=== PATIENT | male | born 1975 | race Caucasian/White ===

== ENCOUNTER 2017-10-10 14:49 | Emergency (ER) | payer OTHER ==
[~2017-10-10] VITALS: Ht 157.5 cm; Wt 108.2 kg
[~2017-10-10 14:49] MED LIST: GUAI-47 PO; OSLT75C PO
[2017-10-10 14:57] VITALS: Ht 157.5 cm; Wt 108.2 kg
[2017-10-10] MEDS ORDERED: IBUPROFEN 600 MG TAB PO ONE (17:00)
[2017-10-10 17:17] LABS: BASOPHIL # 0.1 10^3/ul (0.0-0.1); BASOPHILS % 0.5 % (0.0-2.0); EOSINOPHILS # 0.4 10^3/ul (0.0-0.5); EOSINOPHILS % 3.4 % (0.0-7.0); HEMATOCRIT 48.3 % (42.0-52.0); HEMOGLOBIN 16.6 g/dl (14.0-18.0); LYMPHOCYTES # 3.9 10^3/ul (0.8-2.9); LYMPHOCYTES % 36.7 % (15.0-51.0); MEAN CORPUSCULAR HEMOGLOBIN 31.4 pg (29.0-33.0); MEAN CORPUSCULAR HGB CONC 34.4 g/dl (32.0-37.0); MEAN CORPUSCULAR VOLUME 91.3 fl (82.0-101.0); MEAN PLATELET VOLUME 9.6 fl (7.4-10.4); MONOCYTE # 0.9 10^3/ul (0.3-0.9); NEUTROPHIL # 5.4 10^3/ul (1.6-7.5); NEUTROPHILS % 51.2 % (39.0-77.0); PLATELET COUNT 247 10^3/UL (140-415); RED BLOOD COUNT 5.29 10^6/ul (4.70-6.10); RED CELL DISTRIBUTION WIDTH 12.5 % (11.5-14.5); WHITE BLOOD COUNT 10.6 10^3/ul (4.8-10.8)
[2017-10-10 17:34] LABS: ADD UMIC NO; UR ASCORBIC ACID NEGATIVE (NEGATIVE); UR BILIRUBIN (Dip) NEGATIVE (NEGATIVE); UR BLOOD (Dip) NEGATIVE (NEGATIVE); UR CLARITY CLEAR (CLEAR); UR COLOR YELLOW (YELLOW); UR GLUCOSE (Dip) NEGATIVE (NEGATIVE); UR KETONES (Dip) NEGATIVE (NEGATIVE); UR LEUKOCYTE ESTERASE (Dip) NEGATIVE Leu/ul (NEGATIVE); UR NITRITE (Dip) NEGATIVE (NEGATIVE); UR SPECIFIC GRAVITY (Dip) 1.028 (1.003-1.030); UR TOTAL PROTEIN (Dip) NEGATIVE (NEGATIVE); UR UROBILINOGEN (Dip) 1+ mg/dL (NEGATIVE)
[2017-10-10 17:48] LABS: ALBUMIN 4.6 g/dl (3.3-4.9); ALBUMIN/GLOBULIN RATIO 1.58; BILIRUBIN,INDIRECT 0.1 mg/dl (0-1.1); BILIRUBIN,TOTAL 0.1 mg/dl (0.2-1.3); CALCIUM 9.5 mg/dl (8.4-10.2); CREATININE 0.92 mg/dl (0.61-1.24); POTASSIUM 4.3 mmol/L (3.5-5.1); TOTAL PROTEIN 7.5 g/dl (6.1-8.1)
--- NOTE | 2017-10-10 17:52 | RADRPT ---
PROCEDURE: CT abdomen and pelvis without contrast. CLINICAL INDICATION: Lower abdominal pain for 3 weeks. TECHNIQUE: CT of the abdomen and pelvis was performed without contrast. Coronal and sagittal reform atted images were obtained from the axial source images. Images were reviewed on a high-resolution [employer] workstation. The total exam CTDI equals 23.01 mGy and the total exam DLP equals 1488.48 mGy-cm. DICOM images are available. One or more of the following dose reduction techniques were used: - Automated exposure control. - Adjustment of the mA and/or kV according to patient size. - Use of iterative reconstruction technique. COMPARISON: None available. FINDINGS: Visualized lower thorax: The visualized lung bases are clear. The visualized heart is unremarkable. Hepatobiliary system and spleen: There is a 1.4 cm cyst in segment 7 of the liver, which is otherwi se grossly unremarkable. There is no intra or extrahepatic biliary ductal dilatation. The gallbladde r surgically absent. The spleen is grossly unremarkable. The pancreas is grossly unremarkable. Adrenal glands and genitourinary system: The adrenal glands are grossly unremarkable. There is no n ephrolithiasis or hydronephrosis. The urinary bladder is grossly unremarkable. The prostate gland an d seminal vesicles are grossly unremarkable. Gastrointestinal system: There is no bowel wall thickening or evidence of obstruction. The appendix is in the right lower quadrant and is unremarkable. Peritoneum, vascular, and lymphatics: There is no free intraperitoneal air or free fluid. There is no mesenteric or retroperitoneal adenopathy. The aorta is nonaneurysmal. There is a moderate fat con taining periumbilical hernia. Musculoskeletal system and soft tissues: There are bilateral pars defects at L5 without associated spondylolisthesis. There is mild multilevel degenerative enthesopathy. There are no concerning osseo us lesions. The soft tissues are unremarkable. IMPRESSION: 1. No acute abnormality or findings to suggest a source of the patient's symptoms. 2. Benign hepatic cysts. 3. Moderate fat containing periumbilical hernia. 4. Bilateral pars defects at L5 without associated spondylolisthesis. RPTAT: HLBP .Tommy Ly MD, Date Time Electronically viewed and signed by .Tommy Ly MD, MD on 10/10/2017 17:52 .P/
[2017-10-10] MEDS ORDERED: HYDR-906 PO (17:57)
--- NOTE | 2017-10-10 18:04 | ERD ---
ER Documentation Chief Complaint Chief Complaint Pt with B flank pain X 3 weeks. HPI 42-year-old male complaining of bilateral flank pain 3 weeks. Patient states the pain comes and goes and he has occasional dysuria. He denies hematuria. Has normal bowel movements. Has not taken medications for pain. Denies vomiting. Denies fever. Denies chest pain or shortness of breath. Medical history is umbilical hernia. Surgical history is cholecystectomy. Smokes 2 cigarettes a day. NKDA. ROS All systems reviewed and are negative except as per history of present illness. Medications Home Meds Active Scripts Hydrocodone/Acetaminophen ([place] 5-325 Tablet) 1 Each Tablet, 1 TAB PO Q6H Y for PAIN, #7 TAB Prov:VILMA AVILA PA-C 10/10/17 Guaifenesin-Dextromethorphan* (Mucinex* DM) 600-30 Mg Tabsr, 1 TAB PO Q12 for 7 Days, TAB Prov:DUNG YOUSSEF DO 01/09/16 Oseltamivir Phosphate* (Tamiflu*) 75 Mg Capsule, 75 MG PO BID for 5 Days, CAP Prov:DUNG YOUSSEF DO 01/09/16 Allergies Allergies: Coded Allergies: No Known Allergy (Unverified , 01/01/16) PMhx/Soc History of Surgery: Yes (gallbladder) Anesthesia Reaction: No Hx Neurological Disorder: No Hx Respiratory Disorders: Yes (ASTHMA A CHILD) Hx Cardiac Disorders: No Hx Psychiatric Problems: No Hx Miscellaneous Medical Probl: No Hx Alcohol Use: No Hx Substance Use: No Hx Tobacco Use: No Physical Exam Vitals Vital Signs Date Time Temp Pulse Resp B/P Pulse Ox O2 Delivery O2 Flow Rate FiO2 10/10/17 14:57 98.2 94 18 118/75 98 Physical Exam GENERAL: The patient is well-appearing, well-nourished, in no acute distress CHEST: Clear to auscultation bilaterally. There are no rales, wheezes or rhonchi. HEART: Regular rate and rhythm. No murmurs, clicks, rubs or gallops. No S3 or S4. ABDOMEN:Soft, nontender and nondistended. Good bowel sounds. No rebound or guarding. No gross peritonitis. No gross organomegaly or masses. Umbilical mass with no tenderness to palpation noted. BACK: No midline or flank tenderness. Result Diagram: 10/10/17 1706 10/10/17 1706 Results 24 hrs Laboratory Tests Test 10/10/17 17:00 10/10/17 17:06 Urine Color YELLOW Urine Clarity CLEAR Urine pH 6.0 Urine Specific [place] 1.028 Urine Ketones NEGATIVEmg/dL Urine Nitrite NEGATIVEmg/dL Urine Bilirubin NEGATIVEmg/dL Urine Urobilinogen 1+mg/dL Urine Leukocyte Esterase NEGATIVELeu/ul Urine Hemoglobin NEGATIVEmg/dL Urine Glucose NEGATIVEmg/dL Urine Total Protein NEGATIVEmg/dl White Blood Count 10.610^3/ul Red Blood Count 5.2910^6/ul Hemoglobin 16.6g/dl Hematocrit 48.3% Mean Corpuscular Volume 91.3fl Mean Corpuscular Hemoglobin 31.4pg Mean Corpuscular Hemoglobin Concent 34.4g/dl Red Cell Distribution Width 12.5% Platelet Count 85182^3/UL Mean Platelet Volume 9.6fl Neutrophils % 51.2% Lymphocytes % 36.7% Monocytes % 8.0% Eosinophils % 3.4% Basophils % 0.5% Nucleated Red Blood Cells % 0.0/100WBC Neutrophils # 5.410^3/ul Lymphocytes # 3.910^3/ul Monocytes # 0.910^3/ul Eosinophils # 0.410^3/ul Basophils # 0.110^3/ul Nucleated Red Blood Cells # 0.010^3/ul Sodium Level 142mmol/L Potassium Level 4.3mmol/L Chloride Level 104mmol/L Carbon Dioxide Level 25mmol/L Anion Gap 17 Blood Urea Nitrogen 22mg/dl Creatinine 0.92mg/dl Glucose Level 101mg/dl Calcium Level 9.5mg/dl Total Bilirubin 0.1mg/dl Direct Bilirubin 0.00mg/dl Indirect Bilirubin 0.1mg/dl Aspartate Amino Transf (AST/SGOT) 51IU/L Alanine Aminotransferase (ALT/SGPT) 128IU/L Alkaline Phosphatase 100IU/L Total Protein 7.5g/dl Albumin 4.6g/dl Globulin 2.90g/dl Albumin/Globulin Ratio 1.58 Lipase 215U/L Current Medications Medications (Trade) Dose Ordered Sig/Maile Route PRN Reason Start Time Stop Time Status Last Admin Dose Admin Ibuprofen (Motrin) 600 mg ONCE ONCE PO 10/10/17 17:00 10/10/17 17:01 DC 10/10/17 17:05 Procedures/[facility] DIAGNOSTIC IMAGING REPORT Patient: GERALD DENG : 1975 Age: 42 Sex: M MR #: [id number] DOS: 10/10/17 1656 Ordering MD: GIOVANNA AVILA PA-C Location: [facility] Room/Bed: PROCEDURE: CT abdomen and pelvis without contrast. CLINICAL INDICATION: Lower abdominal pain for 3 weeks. TECHNIQUE: CT of the abdomen and pelvis was performed without contrast. Coronal and sagittal reformatted images were obtained from the axial source images. Images were reviewed on a high-resolution P[employer] workstation. The total exam CTDI equals 23.01 mGy and the total exam DLP equals 1488.48 mGy-cm. DICOM images are available. One or more of the following dose reduction techniques were used: - Automated exposure control. - Adjustment of the mA and/or kV according to patient size. - Use of iterative reconstruction technique. COMPARISON: None available. FINDINGS: Visualized lower thorax: The visualized lung bases are clear. The visualized heart is unremarkable. Hepatobiliary system and spleen: There is a 1.4 cm cyst in segment 7 of the liver, which is otherwise grossly unremarkable. There is no intra or extrahepatic biliary ductal dilatation. The gallbladder surgically absent. The spleen is grossly unremarkable. The pancreas is grossly unremarkable. Adrenal glands and genitourinary system: The adrenal glands are grossly unremarkable. There is no nephrolithiasis or hydronephrosis. The urinary bladder is grossly unremarkable. The prostate gland and seminal vesicles are grossly unremarkable. Gastrointestinal system: There is no bowel wall thickening or evidence of obstruction. The appendix is in the right lower quadrant and is unremarkable. Peritoneum, vascular, and lymphatics: There is no free intraperitoneal air or free fluid. There is no mesenteric or retroperitoneal adenopathy. The aorta is nonaneurysmal. There is a moderate fat containing periumbilical hernia. Musculoskeletal system and soft tissues: There are bilateral pars defects at L5 without associated spondylolisthesis. There is mild multilevel degenerative enthesopathy. There are no concerning osseous lesions. The soft tissues are unremarkable. IMPRESSION: 1. No acute abnormality or findings to suggest a source of the patient's symptoms. 2. Benign hepatic cysts. 3. Moderate fat containing periumbilical hernia. 4. Bilateral pars defects at L5 without associated spondylolisthesis. MDM: 42-year-old male complaining of flank pain. Patient CT scan is within normal limits. I have low suspicion for nephrolithiasis, septic stone, bowel obstruction, strangulated hernia, appendicitis. Patient's blood work, vital signs, exam and imaging is within normal limits. Patient will be discharged with pain medication. Patient is told to follow-up with primary care within 1- 2 days for close evaluation and requested to return to the ER symptoms change or worsen. All questions answered at discharge. Departure Diagnosis: Primary Impression: Flank pain Condition: Stable Patient Instructions: Flank Pain, Uncertain Cause Referrals: SHANELL DASILVA (PCP) Additional Instructions: FOLLOW UP WITH YOUR PRIMARY CARE PHYSICIAN TOMORROW.Return to this facility if you are not improving as expected. VILMA AVILA PA-C Oct 10, 2017 18:04
== END 2017-10-10 18:08 | disposition home or self-care (01) ==
LOC: FTE 14:49
DX: R10.9 Unspecified abdominal pain (principal)
CPT/HCPCS: 36415; 74176; 80053; 81003; 83690; 85025; Z7502; Z7610

== ENCOUNTER 2018-05-11 14:28 | Emergency (ER) | END 2018-05-11 15:59 | disposition home or self-care (01) ==

== ENCOUNTER 2018-06-21 15:24 | Emergency (ER) | END 2018-06-21 17:23 | disposition home or self-care (01) ==

== ENCOUNTER 2019-06-09 14:41 | Emergency (ER) | payer MEDICAID ==
[~2019-06-09] VITALS: Ht 160 cm; Wt 111.2 kg
[~2019-06-09 14:41] MED LIST changes: +ALBU8.5H8 INH; +AZIT250T PO; +DOCU-144 PO; -GUAI-47 PO; +IBUP-1542 PO; +IBUP800T48 PO; +NAPR-688 PO; -OSLT75C PO
[2019-06-09 15:05] VITALS: BP 120/61; PULSE 77; RESP 16; Ht 160 cm; Wt 111.2 kg
[2019-06-09] MEDS ORDERED: IBUPROFEN 600 MG TAB PO ONE (17:00)
--- NOTE | 2019-06-09 17:12 | ERD ---
ER Documentation Chief Complaint Chief Complaint pt c/o sorethroat, BENNETT that radiates to back x 5 days HPI 44-year-old man complains of sore throat, congestion, cough, headache x5 days with tactile fevers. He states the headache is toward the back of his head but denies neck pain or neck stiffness. He has had no trouble speaking or swallowing, no vomiting or diarrhea, no complaints of chest pain or shortness of breath. ROS All systems reviewed and are negative except as per history of present illness. Medications Home Meds Active Scripts Albuterol Sulfate* (Proair HFA*) 8.5 Gm Hfa.aer.ad, 2 PUFF INH Q6H PRN for COUGH, #1 INHALER Prov:LEON REESE MD 06/09/19 Ibuprofen* (Motrin*) 600 Mg Tab, 600 MG PO Q8 PRN for PAIN AND/OR INFLAMMATION, #30 TAB Prov:LEON REESE MD 06/09/19 Azithromycin* (Zithromax*) 250 Mg Tablet, 250 MG PO .ZPACK DIRECTED, #6 TAB TAKE 500 MG (2 TABS) THE FIRST DAY THEN 250 MG (1 TAB) DAYS 2-5 Prov:LEON REESE MD 06/09/19 Docusate Sodium* (Colace*) 100 Mg Capsule, 100 MG PO TID PRN for CONSTIPATION, #30 CAP Prov:TANVI DURAND MD 12/18/18 Ibuprofen* (Motrin*) 800 Mg Tab, 800 MG PO Q6H PRN for PAIN AND OR ELEVATED TEMP, #30 TAB Prov:TANVI DURAND MD 12/18/18 Reported Medications Naproxen* (Naproxen*) 500 Mg Tablet, 500 MG PO BID PRN for INFLAMATION, TAB 12/18/18 Allergies Allergies: Coded Allergies: No Known Allergy (Unverified , 06/09/19) PMhx/Soc Obesity Medical and Surgical Hx: pt denies Surgical Hx History of Surgery: Yes (gallbladder) Anesthesia Reaction: No Hx Neurological Disorder: No Hx Respiratory Disorders: Yes (ASTHMA A CHILD) Hx Cardiac Disorders: No Hx Psychiatric Problems: No Hx Miscellaneous Medical Probl: Yes (UMBILIAL HERNIA ) Hx Alcohol Use: Yes (social) Hx Substance Use: No Hx Tobacco Use: No Smoking Status: Never smoker FmHx Family History: No diabetes Physical Exam Vitals Vital Signs Date Temp Pulse Resp B/P (MAP) Pulse Ox O2 O2 Flow FiO2 Time Delivery Rate 06/09/19 98.5 77 16 120/61 97 15:05 (80) Physical Exam GENERAL: Well-developed, well-nourished, well-hydrated, in no apparent distress, looks nontoxic in appearance HEENT: Moist mucous membranes, pink conjunctiva, no cervical spine tenderness or step-off deformities, no goiter, no jaundice or icterus, extraocular movements intact without pain. No submandibular induration, and no pharyngeal erythema NEURO: Alert and oriented 3, cranial nerves II through XII intact bilaterally, pupils equal round reactive to light, no focal deficits or facial asymmetry, sensation intact distally Strength 5/5 in upper and lower extremities bilaterally CARDIAC: Regular rate and rhythm, no murmurs rubs or gallops LUNGS: Clear bilaterally no wheezing crackles or stridor Results 24 hrs Current Medications Medications Dose Sig/Maile Start Time Status Last (Trade) Ordered Route PRN Stop Time Admin Dose Reason Admin Ibuprofen 600 mg ONCE ONCE 06/09/19 DC 06/09/19 (Motrin) PO 17:00 16:52 06/09/19 17:01 Procedures/MDM Patient's vital signs are normal although given his 5 days of symptoms I decided to treat him with oral antibiotics as an outpatient, also prescribed albuterol pump as needed cough and ibuprofen. Differential diagnoses considered, included but not limited to acute coronary syndrome, pulmonary embolism, aortic dissection, abdominal aortic aneurysm, sepsis, stroke, meningitis, encephalitis, pneumonia, appendicitis, cholecystitis, bowel obstruction, pyelonephritis, nephrolithiasis, cystitis, as well as metabolic, hematologic, and electrolyte abnormalities. As well as abscess, cellulitis, fractures, and dislocations. Patient feels much better at this time, and vital signs are normal, symptoms have improved. I did give strict instructions to return to the ED if symptoms continue or worsen, patient will otherwise follow-up with primary care physician. Patient understood instructions and agreed to plan. Disclaimer: Inadvertent spelling and grammatical errors are likely due to EHR/dictation software use and do not reflect on the overall quality of patient care. Also, please note that the electronic time recorded on this note does not necessarily reflect the actual time of the patient encounter. Departure Diagnosis: Primary Impression: Sore throat Additional Impression: Bronchitis Condition: Good Patient Instructions: Bronchitis, Antiobiotic Treatment (Adult) LEON REESE MD Jun 09, 2019 17:12
== END 2019-06-09 17:38 | disposition home or self-care (01) ==
LOC: FTE 14:41
DX: J02.9 Acute pharyngitis, unspecified (principal); J40 Bronchitis, not specified as acute or chronic
CPT/HCPCS: Z7502; Z7610; 99282